=== PATIENT | male | born 1955 | race Caucasian/White ===

== ENCOUNTER 2025-02-15 09:04 | Outpatient (CLI) | payer MEDICARE, OTHER ==
[~2025-02-15 09:04] MED LIST: Iopamidol 370 76% 100 ML VIAL ONE
[2025-02-15 09:41] LABS: Calc. Creatinine Clearance 0.0 mL/min (70-130)
== END 2025-02-15 09:05 | disposition home or self-care (01) ==
LOC: MADRAD 09:04
PROVIDERS: ATTEND Physician Assistant
DX: Z91.81 History of falling (principal); J90 Pleural effusion, not elsewhere classified; I77.4 Celiac artery compression syndrome; S22.32XA Fracture of one rib, left side, initial encounter for closed fracture
CPT/HCPCS: 36415; 71260; 74160; 82565; Q9967